=== PATIENT | male | born 1995 | race Caucasian/White ===

== ENCOUNTER 2022-10-31 11:54 | Emergency (ER) | payer SELFPAY ==
[~2022-10-31] VITALS: Ht 175.3 cm; Wt 72.0 kg
[2022-10-31 12:07] VITALS: BP 155/107; PULSE 104; RESP 18; O2SAT 99
[2022-10-31 12:30] VITALS: TEMP 98.6
[2022-10-31] MEDS ORDERED: ACETAMINOPHEN 325MG TABLET PO ONE (12:30)
== END 2022-10-31 13:55 | disposition home or self-care (01) ==
LOC: ER 11:54
DX: M25.512 Pain in left shoulder (principal)
CPT/HCPCS: 73030; 99283